=== PATIENT | male | born 1995 | race Hispanic/Latino ===

== ENCOUNTER 2022-03-22 13:34 | Emergency (ER) | payer OTHER, SELFPAY ==
--- NOTE | 2022-03-22 13:40 | ED.WOUNDLAC ---
HPI - Wound/Laceration General Chief Complaint: Extremity Injury, Upper Stated Complaint: left 2nd finger laceration Time Seen by Provider: 03/22/22 14:05 Source: patient and RN notes reviewed Mode of arrival: ambulatory Limitations: no limitations History of Present Illness HPI narrative: 26-year-old male presents concern for injury to the finger around the 2nd digit of left hand. Reports he was drilling on when the drill accidentally drilled fingernail. He reports part of the nail is gone. He reports distal. He is his tetanus vaccination. He reports he has been using antiseptic wipes Related Data Allergies Allergy/AdvReac Type Severity Reaction Status Date / Time No Known Allergies Allergy Verified 03/22/22 14:15 Review of Systems Review of Systems: CONSTITUTIONAL: Denies malaise, chills, sweats, or fever. SKIN: Reports injury to the nail bed of the 2nd digit of the left hand, reports red, swollen finger MUSCULOSKELETAL: Denies muscle skeletal pain NEUROLOGIC: Denies numbness, weakness All systems reviewed & are unremarkable except as noted in HPI and below PMFSH Comments At time of signature, agree with nursing past medical, surgical, social and family history. There is no relevant family history pertinent to the presenting complaint Exam Narrative: GENERAL: Well-appearing, well-nourished, and in no acute distress. HEAD: Normocephalic, atraumatic. EYES: PERRLA, conjunctivae clear ENT: Mucous membranes moist. NECK: Supple. No lymphadenopathy CHEST: Clear to auscultation. No respiratory distress. HEART: Regular rate and rhythm. SKIN: Warm, dry. Proximal lateral portion of the finger nail avulsed without foreign body noted, the remaining nail is unremarkable without foreign body noted to the remaining nail. Distal finger is erythematous, slightly edematous and tender NEURO: Alert and oriented x3. PSYCH: Normal mood and affect Extrem: Hand/finger images: 1. avulsed fingernail Course Course Emergency Course: Patient is aware of diagnosis, understands and agrees to treatment plan. Anticipatory guidance given. Patient agrees to follow-up as directed and is aware of reasons to seek care at the emergency department. Portions of this record may have been created with voice recognition software Level of Care: Express Care Visit Vital Signs Vital signs: Vital Signs Temperature 98.7 F 03/22/22 13:49 Pulse Rate 67 03/22/22 13:49 Respiratory Rate 16 03/22/22 13:49 Blood Pressure 130/67 03/22/22 13:49 Pulse Oximetry 99 03/22/22 13:49 Oxygen Delivery Room Air 03/22/22 13:49 Temperature 98.7 F 03/22/22 13:49 Pulse Rate 67 03/22/22 13:49 Respiratory Rate 16 03/22/22 13:49 Blood Pressure 130/67 03/22/22 13:49 Pulse Oximetry 99 03/22/22 13:49 Oxygen Delivery Room Air 03/22/22 13:49 Reviewed. MDM - Wound/Laceration MDM Narrative Medical decision making narrative: Exam findings show no acute concerns or changes; patient is non-toxic appearing and is in no distress. Patient is appropriate for outpatient treatment and follow-up. Differential Diagnosis Differential diagnosis: Likely laceration, abrasion and avulsion of skin Critical Care Time Critical Care Time Critical Care Time: No Discharge Plan Discharge Clinical Impression: Avulsion of nail of left index finger Patient Disposition: Home, Self-Care Condition: Stable Instructions: Antibiotic Form, Nail Avulsion (ED) Additional Instructions: Soak your nail: Soak your nail in a mixture of equal parts vinegar and water 3 or 4 times each day. This will help decrease inflammation. Apply a warm compress: Soak a washcloth in warm water and place it on your nail. This will help decrease inflammation. Elevate: Raise your nail above the level of your heart as often as you can. This will help decrease swelling and pain. Prop your nail on pillows or blankets to keep it elevated comfortably. Please fo
[2022-03-22 13:49] VITALS: BP 130/67; PULSE 67; RESP 16; TEMP 37.1; O2SAT 99
[2022-03-22] MEDS: TETANUS,DIPHTHERIA,AC PERTUSSIS ADULT (0.5 ML) BOOSTRIX IM (14:31)
== END 2022-03-22 14:51 | disposition home or self-care (01) ==
PROVIDERS: Emergency Provider Nurse Practitioner
DX: S61.300A Unspecified open wound of right index finger with damage to nail, initial encounter (principal); W29.8XXA Contact with other powered hand tools and household machinery, initial encounter; Z23 Encounter for immunization
CPT/HCPCS: 90471; 90715; 99203; G0463

== ENCOUNTER 2022-12-18 16:15 | Emergency (ER) | payer OTHER, SELFPAY ==
[2022-12-18 16:30] VITALS: BP 127/68; PULSE 71; RESP 14; TEMP 37.2; O2SAT 100
--- NOTE | 2022-12-18 20:37 | ED.MALEGU ---
HPI - Male Genitourinary General Chief complaint: Urogenital-Male <Tammi Garcia NP - Last Filed: 12/21/22 08:18> Stated complaint: urinary issues <Tammi Garcia NP - Last Filed: 12/21/22 08:18> Time Seen by Provider: 12/18/22 16:40 <Tammi Garcia NP - Last Filed: 12/21/22 08:18> Source: patient, RN notes reviewed and old records reviewed <Tammi Garcia NP - Last Filed: 12/21/22 08:18> Mode of arrival: ambulatory <GRISELDA Martinez Last Filed: 12/21/22 08:18> Limitations: no limitations <Tammi Garcia NP - Last Filed: 12/21/22 08:18> History of Present Illness HPI Narrative: 27-year-old male who presents to [facility] for 1 week duration. Patient reports no discharge no concerns for STDs but wants STD testing sent. Patient denies any testicle pain or any penile lesions, patient reports that he drinks a lot of water at work but he has been drinking a lot of soda and also juices lately. Patient reports that he has been drinking more alcohol lately also. Patient denies any fevers chills or sweats, denies any back pain or any flank discomfort. <Tammi Garcia NP - Last Filed: 12/21/22 08:18> MD Complaint: other (urinary burning ) <Tammi Garcia NP - Last Filed: 12/21/22 08:18> Onset (ago): week(s) (1) <Tammi Garcia NP - Last Filed: 12/21/22 08:18> Related Data Allergies/Adverse reactions: Allergies Allergy/AdvReac Type Severity Reaction Status Date / Time No Known Allergies Allergy Verified 12/18/22 16:32 <Tammi Garcia NP - Last Filed: 12/21/22 08:18> Review of Systems Review of Systems: CONSTITUTIONAL: Denies fever, chills, or sweats. CARDIOVASCULAR: Denies chest pain, palpitations, or edema. RESPIRATORY: Denies cough or dyspnea. GASTROINTESTINAL: Denies abdominal pain, nausea, vomiting, or diarrhea. GENITOURINARY: Reports some urinary burning,denies any frequency, urgency. Denies flank pain or hematuria. SKIN: Denies rash or itching. MUSCULOSKELETAL: Denies back pain or myalgia. Denies CVA tenderness NEUROLOGIC: Denies headache <Tammi Garcia NP - Last Filed: 12/21/22 08:18> All systems reviewed & are unremarkable except as noted in HPI and below <Tammi Garcia NP - Last Filed: 12/21/22 08:18> PMFSH Social History Social History: Social History (Updated 12/18/22 @ 20:46 by Tammi Garcia NP) Alcohol intake: current Gender identity (if verbalized by the patient): Male <GRISELDA Martinez Last Filed: 12/21/22 08:18> Comments At time of signature, agree with nursing past medical, surgical, social and family history. There is no relevant family history pertinent to the presenting complaint <Tammi Garcia NP - Last Filed: 12/21/22 08:18> Exam Narrative: GENERAL: Well-appearing, well-nourished, and in no acute distress. HEAD: Normocephalic, atraumatic. NECK: Supple. no lymphadenopathy CHEST: Clear to auscultation. No respiratory distress.SAO2 100% on room air HEART: Regular rate and rhythm. No murmur heard. Normal peripheral pulses. ABDOMEN: Soft, nontender, nondistended, normal active bowel sounds. No CVA tenderness no supra pubic tenderness denies any testicular pain penile pain or any lesions, states intermittent burning with urination EXTREMITIES: Normal range of motion. No edema. SKIN: Warm, dry, no rash. NEURO: No focal deficits. Alert and oriented x3. <GRISELDA Martinez Last Filed: 12/21/22 08:18> Course Course Emergency Course: Patient is aware of diagnosis, understands and agrees to treatment plan.? Anticipatory guidance given.? Patient agrees to follow-up as directed and is aware of reasons to seek care at the emergency department. Portions of this record may have been created with voice recognition software <Tammi Garcia NP - Last Filed: 12/21/22 08:18> Patient is aware of diagnosis, understands and agrees to treatment
[2022-12-19 02:15] LABS: Trichomonas Vag PCR NOT DETECTED (NOT DETECTE)
[2022-12-19 02:40] LABS: Chlamydia trachomatis DETECTED (NOT DETECTE); Neisseria gonorrhoeae PCR NOT DETECTED (NOT DETECTE)
== END 2022-12-18 18:15 | disposition home or self-care (01) ==
PROVIDERS: Emergency Provider Registered Nurse; PCP Family Medicine
DX: R30.0 Dysuria (principal); Z11.3 Encounter for screening for infections with a predominantly sexual mode of transmission
CPT/HCPCS: 81003; 87491; 87591; 87661; 99213; G0463

== ENCOUNTER 2024-03-24 15:53 | Emergency (ER) | payer OTHER, SELFPAY ==
--- NOTE | 2024-03-24 15:55 | ED_ITS ---
HPI - Male Genitourinary General Chief complaint: Urogenital-Male Stated complaint: STD testing Time Seen by Provider: 03/24/24 15:55 Source: patient Mode of arrival: ambulatory Limitations: no limitations History of Present Illness HPI Narrative: Zurdo is a 28-year-old male patient presenting to the clinic today with complaints of possible STD. He reports he is having itchiness to his penis, testicles, and in his groin area. He reports that this has been going on for the last few days. He denies any urinary symptoms but is concern for STIs and would like to be tested. Denies any new soaps, shampoos, lotions in the groin area Related Data Allergies Allergy/AdvReac Type Severity Reaction Status Date / Time No Known Allergies Allergy Verified 03/24/24 16:12 Review of Systems Review of Systems: Pertinent positives per HPI. Patient denies any fever, chills, rash, headache, visual changes, dizziness, cough, runny nose, sore throat, shortness of breath, chest pain, palpitations, nausea, vomiting, diarrhea, constipation, abdominal pain, or any urinary issues. PMFSH Social History Social History Alcohol intake: current Gender identity (if verbalized by the patient): Male Comments At the time of my signature, I reviewed and agree with the nursing past medical, surgical, social, and family history. There is no relevant family history pertinent to the patient complaint. Exam Narrative: General: Well-developed, well nourished, in no apparent distress Head: Normocephalic, atraumatic. Cardio: Regular rate and rhythm, s1 and s2 normal, no murmur appreciated. Resp: Clear to auscultation bilaterally, no rhonchi, rales, wheezing or rubs. Integumentary: [place], warm, and dry, intact without lesion, mild redness /itching noted to the groin, testes, and shaft of the penis-uncircumcised male-no corneal adhesions, redness, or lesions noted when pulling back the foreskin. No ly mphadenopathy Course Course Emergency Course: Portions of this record may have been created with voice recognition software. Level of Care: Express Care Visit Vital Signs Vital signs: Vital Signs Temperature 37.3 C 03/24/24 16:02 Pulse Rate 70 03/24/24 16:02 Respiratory Rate 16 03/24/24 16:02 Blood Pressure 135/87 03/24/24 16:02 Pulse Oximetry 100 03/24/24 16:02 Oxygen Delivery Room Air 03/24/24 16:02 Temperature 37.3 C 03/24/24 16:02 Pulse Rate 70 03/24/24 16:02 Respiratory Rate 16 03/24/24 16:02 Blood Pressure 135/87 03/24/24 16:02 Pulse Oximetry 100 03/24/24 16:02 Oxygen Delivery Room Air 03/24/24 16:02 Vital signs reviewed MDM - Male Genitourinary MDM Narrative Medical decision making narrative: At the time of visit patient is resting comfortably on the exam table. Patient appears to be nontoxic. Labs: Urinalysis was sent for chlamydia, gonorrhea, and Trichomonas testing per patient request. Plan: I suspect patient may have jock itch. Prescription for ketoconazole cream was sent to the pharmacy. Supportive measures were discussed with the patient and they voiced understanding discharge instructions and agrees to treatment plan. Return precautions reviewed Differential Diagnosis Differential diagnosis: Likely urinary tract infection, priapism, urethritis, epididymitis, genital herpes simplex, prostatitis, acute retention of urine, inguinal hernia and other (Jock itch, concern for STIs) Discharge Plan Discharge Clinical Impression: Jock itch, Concern about STI in male without diagnosis Patient Disposition: Home, Self-Care Condition: Stable Instructions: Antibiotic Form, Sexually Transmitted Diseases (ED), Safe Sex Practices (ED), Skin Yeast Infection (ED) Additional Instructions: Urinalysis sent for gonorrhea, chlamydia, and Trichomonas testing. Your symptoms may be due to jock itch. Keep groin area clean and dry Pullback your foreskin and clean well Wash with soap and water daily and pat dry Apply clotrimazole cream as directed Follow-up with your doctor in 1 week if symptoms persist or sooner if they worsen Prescriptions: New ketoconazole 2 % cream 1 applic topical BID 14 Days Qty: 60 0RF Follow-up/Referrals: James,COLUMBA Baez [Primary Care Provider] - Time of Disposition: 16:14 Quality NIHSS Nursing Documentation ED NIHSS nursing documentation: reviewed/agree
[2024-03-24 16:02] VITALS: BP 135/87; PULSE 70; RESP 16; TEMP 37.3; O2SAT 100
[2024-03-24 21:17] LABS: Trichomonas Vag PCR NOT DETECTED (NOT DETECTE)
[2024-03-24 21:40] LABS: Chlamydia trachomatis NOT DETECTED (NOT DETECTE); Neisseria gonorrhoeae PCR NOT DETECTED (NOT DETECTE)
== END 2024-03-24 16:18 | disposition home or self-care (01) ==
PROVIDERS: Emergency Provider Nurse Practitioner Family; PCP Physician Assistant
DX: B35.6 Tinea cruris (principal); Z20.2 Contact with and (suspected) exposure to infections with a predominantly sexual mode of transmission
CPT/HCPCS: 87491; 87591; 87661; 99213; G0463